=== PATIENT | female | born 1945 | race Caucasian/White ===

== ENCOUNTER → 2017-05-09 | Outpatient (CLI) | payer BC, OTHER ==
[~2017-05-09] MED LIST: ACET500; ALEN70 PO; ALEVE220 MG PO; ALPR.5 PO; AMOX500 PO; ASPI325 PO; CALCAVITD PO; CHLO4 PO; CODGUAEL PO; ERGO400 PO; SUDAFED 12-HOU120 MG PO
== END ==
LOC: PLD 13:54 → LAB SHORT 13:54
DX: L30.8 Other specified dermatitis (principal)
CPT/HCPCS: 88305; 88312

== ENCOUNTER 2018-02-27 09:05 | Inpatient (IN) | payer MEDICARE, BC, OTHER ==
[~2018-02-27] VITALS: Ht 160 cm; Wt 71.4 kg
[~2018-02-27 09:05] MED LIST changes: -ACET500; +ACET500 PO
[2018-02-27 09:56] LABS: BASOPHILS ABSOLUTE AUTO 0.06 K/mm3 (0.00-0.23); BASOPHILS PERCENT AUTO 0 % (0-2); EOSINOPHILS PERCENT AUTO 0 % (0-6); Hematocrit 41.6 % (33.0-51.0); Hemoglobin 13.7 g/dL (11.5-16.0); IMMATURE GRAN PERCENT AUTO 1 % (0-1); LYMPHOCYTES ABSOLUTE AUTO 0.92 K/mm3 (0.84-5.20); LYMPHOCYTES PERCENT AUTO 5 % (21-46); MONOCYTES PERCENT AUTO 8 % (4-13); Mean Corpuscular HGB 30.7 pg (26.0-34.0); Mean Corpuscular HGB Conc 32.9 g/dL (31.5-36.5); Mean Corpuscular Volume 93 fL (80-100); NEUTROPHILS ABSOLUTE AUTO 16.16 K/mm3 (1.96-9.15); NEUTROPHILS PERCENT AUTO 87 % (41-73); Platelet Count 289 K/mm3 (150-400); RDW Coefficient Variation 13.2 % (11.7-14.2); RDW Standard Deviation 45.1 fL (35.1-46.3); Red Blood Cell Count 4.46 M/mm3 (3.80-5.20); White Blood Cell Count 18.64 K/mm3 (4.00-11.30)
[2018-02-27 10:09] LABS: International Normalized Ratio 1.01; Prothrombin Time Results 10.4 Sec (9.7-11.5)
[2018-02-27 10:17] LABS: Alanine Aminotransfer (ALT/SGP 27 U/L (12-78); Albumin, Blood 4.1 g/dL (3.4-5.0); Albumin/Globulin Ratio 1.3 (0.8-1.8); Alk Phos 66 U/L (50-136); Anion Gap 10 mmol/L (6-16); Aspartate Aminotrans (AST/SGOT 28 U/L (12-37); Bilirubin, Total 0.7 mg/dL (0.1-1.0); Blood Urea Nitrogen 11 mg/dL (8-24); Bun/Creatinine Ratio 19.3 (12.0-20.0); CO2, Blood 24 mmol/L (21-32); Calcium, Blood 8.5 mg/dL (8.5-10.1); Chloride, Blood 103 mmol/L (98-108); Creatinine, Blood 0.57 mg/dL (0.40-1.00); Globulin, Blood 3.2 g/dL (2.2-4.0); Glomerular Filtration Rate >60 (60-); Glucose, Blood 101 mg/dL (70-99); Potassium, Blood 3.8 mmol/L (3.5-5.5); Sodium, Blood 137 mmol/L (136-145); Total Protein, Blood 7.3 g/dL (6.4-8.2)
[2018-02-27] MEDS ORDERED: CELE100 PO (11:45)
[2018-02-27 11:46] LABS: Appearance, Urine Clear (Clear); Bilirubin, Urine Neg (Neg); Blood, Urine 1+ (Neg); Color, Urine Yellow (P-Yellow); Glucose Qualitative, Urine Neg (Neg); Ketones, Urine 3+ (Neg); Leukocyte Esterase, Urine 1+ (Neg); Nitrite, Urine Neg (Neg); Protein, Urine Neg (Neg); Specific Gravity, Urine 1.015 (1.003-1.022); Urobilinogen, Urine NORM (Normal)
[2018-02-27 11:57] LABS: White Blood Cells, Urine 0-2 /hpf (0-5)
[2018-02-27 11:58] LABS: Bacteria Not Seen /hpf; Red Blood Cells, Urine 0-2 /hpf (0-2); Squamous Epithelial Cells Rare /hpf (Few); Uric Acid Crystals Rare /hpf
[2018-02-27] MEDS ORDERED: ANAS1 PO (13:28)
[2018-02-28 04:20] LABS: BASOPHILS ABSOLUTE AUTO 0.03 K/mm3 (0.00-0.23); BASOPHILS PERCENT AUTO 0 % (0-2); EOSINOPHILS PERCENT AUTO 0 % (0-6); Hematocrit 31.4 % (33.0-51.0); Hemoglobin 10.1 g/dL (11.5-16.0); IMMATURE GRAN ABSOLUTE AUTO 0.07 K/mm3 (0.00-0.10); IMMATURE GRAN PERCENT AUTO 0 % (0-1); LYMPHOCYTES ABSOLUTE AUTO 0.78 K/mm3 (0.84-5.20); LYMPHOCYTES PERCENT AUTO 5 % (21-46); MONOCYTES ABSOLUTE AUTO 1.69 K/mm3 (0.16-1.47); MONOCYTES PERCENT AUTO 10 % (4-13); Mean Corpuscular HGB 30.3 pg (26.0-34.0); Mean Corpuscular HGB Conc 32.2 g/dL (31.5-36.5); Mean Corpuscular Volume 94 fL (80-100); Mean Platelet Volume 11.9 fL (9.1-12.4); NEUTROPHILS ABSOLUTE AUTO 13.61 K/mm3 (1.96-9.15); NEUTROPHILS PERCENT AUTO 84 % (41-73); Platelet Count 195 K/mm3 (150-400); RDW Coefficient Variation 13.2 % (11.7-14.2); RDW Standard Deviation 45.7 fL (35.1-46.3); Red Blood Cell Count 3.33 M/mm3 (3.80-5.20); White Blood Cell Count 16.18 K/mm3 (4.00-11.30)
[2018-02-28 04:35] LABS: Anion Gap 7 mmol/L (6-16); Blood Urea Nitrogen 11 mg/dL (8-24); Bun/Creatinine Ratio 19.7 (12.0-20.0); CO2, Blood 27 mmol/L (21-32); Calcium, Blood 7.3 mg/dL (8.5-10.1); Chloride, Blood 108 mmol/L (98-108); Creatinine, Blood 0.56 mg/dL (0.40-1.00); Glomerular Filtration Rate >60 (60-); Glucose, Blood 129 mg/dL (70-99); Potassium, Blood 4.2 mmol/L (3.5-5.5); Sodium, Blood 142 mmol/L (136-145)
[2018-03-01 04:14] LABS: BASOPHILS ABSOLUTE AUTO 0.07 K/mm3 (0.00-0.23); BASOPHILS PERCENT AUTO 1 % (0-2); EOSINOPHILS PERCENT AUTO 1 % (0-6); Hematocrit 31.5 % (33.0-51.0); IMMATURE GRAN ABSOLUTE AUTO 0.06 K/mm3 (0.00-0.10); IMMATURE GRAN PERCENT AUTO 1 % (0-1); LYMPHOCYTES ABSOLUTE AUTO 1.62 K/mm3 (0.84-5.20); LYMPHOCYTES PERCENT AUTO 13 % (21-46); MONOCYTES ABSOLUTE AUTO 1.62 K/mm3 (0.16-1.47); MONOCYTES PERCENT AUTO 13 % (4-13); Mean Corpuscular HGB 30.9 pg (26.0-34.0); Mean Corpuscular HGB Conc 31.7 g/dL (31.5-36.5); Mean Platelet Volume 12.2 fL (9.1-12.4); NEUTROPHILS ABSOLUTE AUTO 9.22 K/mm3 (1.96-9.15); NEUTROPHILS PERCENT AUTO 73 % (41-73); Platelet Count 176 K/mm3 (150-400); RDW Coefficient Variation 13.2 % (11.7-14.2); Red Blood Cell Count 3.24 M/mm3 (3.80-5.20); White Blood Cell Count 12.69 K/mm3 (4.00-11.30)
[2018-03-01 04:18] LABS: Mean Corpuscular Volume 97 fL (80-100)
[2018-03-01 04:31] LABS: Anion Gap 6 mmol/L (6-16); Blood Urea Nitrogen 17 mg/dL (8-24); Bun/Creatinine Ratio 21.9 (12.0-20.0); CO2, Blood 27 mmol/L (21-32); Calcium, Blood 7.9 mg/dL (8.5-10.1); Chloride, Blood 107 mmol/L (98-108); Creatinine, Blood 0.78 mg/dL (0.40-1.00); Glomerular Filtration Rate >60 (60-); Glucose, Blood 95 mg/dL (70-99); Potassium, Blood 4.2 mmol/L (3.5-5.5); Sodium, Blood 140 mmol/L (136-145)
[2018-03-01] MEDS ORDERED: ASPI325EC PO (15:01)
[2018-03-01] MEDS ORDERED: OXYC5 PO (15:02)
== END 2018-03-01 15:15 | disposition home or self-care (01) | DRG 470 ==
LOC: ER 09:05 → SURS 11:12
PROVIDERS: Emergency Medicine; Internal Medicine Endocrinology, Diabetes & Metabolism; Orthopaedic Surgery
PROC: 0SR904Z Replacement of Right Hip Joint with Ceramic on Polyethylene Synthetic Substitute, Open Approach (ICD-10-PCS; principal; 2018-02-27 14:00)
DX: S72.001A Fracture of unspecified part of neck of right femur, initial encounter for closed fracture (principal); M85.80 Other specified disorders of bone density and structure, unspecified site; K21.9 Gastro-esophageal reflux disease without esophagitis; Z85.3 Personal history of malignant neoplasm of breast; Z79.811 Long term (current) use of aromatase inhibitors; Z79.82 Long term (current) use of aspirin; Z87.891 Personal history of nicotine dependence; Z79.1 Long term (current) use of non-steroidal anti-inflammatories (NSAID); Z79.899 Other long term (current) drug therapy
CPT/HCPCS: 36415; 51702; 71045; 72170; 73502; 73560-RT; 80048; 80053; 81001; 83735; 85025; 85610; 86850; 86900; 86901; 87086; 93005; 93010; 96361; 96374; 96376; 97116; 97161; 97166; 97530; 97535; 99285-25; C1713; C1776; G8978; G8979; G8987; G8988; J0171; J0330; J0690; J0735; J1100; J1170; J1885; J2370; J2405; J2710; J2795; J3010; J7030; J7120

== ENCOUNTER → 2019-05-24 | Outpatient (CLI) | payer BC ==
[~2019-05-24] MED LIST changes: +ANAS1 PO; +ASPI325EC PO; +CELE100 PO; +OXYC5 PO
== END | disposition home or self-care (01) ==
LOC: LAB SHORT 15:40 → LAB EV 15:40
DX: J02.9 Acute pharyngitis, unspecified (principal)
CPT/HCPCS: 87081

== ENCOUNTER 2020-08-24 16:39 | Day surgery (SDC) | payer BC ==
[~2020-08-24] VITALS: Ht 170.2 cm; Wt 68.8 kg
[2020-08-24 18:42] LABS: BASOPHILS ABSOLUTE AUTO 0.07 K/mm3 (0.00-0.23); BASOPHILS PERCENT AUTO 0 % (0-2); EOSINOPHILS ABSOLUTE AUTO 0.01 K/mm3 (0.00-0.68); EOSINOPHILS PERCENT AUTO 0 % (0-6); Hematocrit 42.2 % (33.0-51.0); Hemoglobin 13.8 g/dL (11.5-16.0); IMMATURE GRAN ABSOLUTE AUTO 0.15 K/mm3 (0.00-0.10); IMMATURE GRAN PERCENT AUTO 1 % (0-1); LYMPHOCYTES ABSOLUTE AUTO 0.99 K/mm3 (0.84-5.20); LYMPHOCYTES PERCENT AUTO 6 % (21-46); MONOCYTES ABSOLUTE AUTO 1.17 K/mm3 (0.16-1.47); MONOCYTES PERCENT AUTO 7 % (4-13); Mean Corpuscular HGB 30.3 pg (26.0-34.0); Mean Corpuscular HGB Conc 32.7 g/dL (31.5-36.5); Mean Corpuscular Volume 93 fL (80-100); Mean Platelet Volume 11.9 fL (9.1-12.4); NEUTROPHILS ABSOLUTE AUTO 15.53 K/mm3 (1.96-9.15); NEUTROPHILS PERCENT AUTO 87 % (41-73); Platelet Count 253 K/mm3 (150-400); RDW Coefficient Variation 13.2 % (11.7-14.2); RDW Standard Deviation 44.7 fL (35.1-46.3); Red Blood Cell Count 4.55 M/mm3 (3.80-5.20); White Blood Cell Count 17.92 K/mm3 (4.00-11.30)
[2020-08-24 19:03] LABS: Alanine Aminotransfer (ALT/SGP 30 U/L (12-78); Albumin, Blood 3.9 g/dL (3.4-5.0); Albumin/Globulin Ratio 1.2 (0.8-1.8); Alk Phos 51 U/L (50-136); Anion Gap 10 mmol/L (6-16); Aspartate Aminotrans (AST/SGOT 24 U/L (12-37); Bilirubin, Total 0.3 mg/dL (0.1-1.0); Blood Urea Nitrogen 8 mg/dL (8-24); Bun/Creatinine Ratio 11.9 (12.0-20.0); CO2, Blood 22 mmol/L (21-32); Calcium, Blood 8.6 mg/dL (8.5-10.1); Chloride, Blood 105 mmol/L (98-108); Creatinine, Blood 0.68 mg/dL (0.40-1.00); Globulin, Blood 3.2 g/dL (2.2-4.0); Glomerular Filtration Rate >60 (60-); Glucose, Blood 109 mg/dL (70-99); Potassium, Blood 3.6 mmol/L (3.5-5.5); Sodium, Blood 137 mmol/L (136-145); Total Protein, Blood 7.1 g/dL (6.4-8.2)
[2020-08-24 20:19] LABS: Source, Urine Catheter
[2020-08-24 20:21] LABS: Bilirubin, Urine Neg (Neg); Blood, Urine Neg (Neg); Glucose Qualitative, Urine Neg (Neg); Ketones, Urine Neg (Neg); Leukocyte Esterase, Urine Neg (Neg); Nitrite, Urine Neg (Neg); Protein, Urine Neg (Neg); Specific Gravity, Urine 1.005 (1.003-1.022); Urobilinogen, Urine NORM (Normal)
[2020-08-24 20:30] LABS: Appearance, Urine Clear (Clear); Color, Urine Yellow (P-Yellow)
[2020-08-24] MEDS ORDERED: HYDROCODONE-AC1 EAC7 PO (20:36)
--- NOTE | 2020-08-24 22:36 | NUR ---
75 YR OLD FEMALE ADMITTED TO THE FLOOR FROM THE ED WITH FX OF LEFT FEMUR NECK AND LEFT EYE BRUISE POST FALL AT HOME. ORIENTED X 4. ORIENTED TO CALL LIGHT. BEDREST. NPO. IVF OF NE INFUSING AT 75 ML/HR. CALL LIGHT IN REACH
--- NOTE | 2020-08-25 00:34 | NUR ---
AWAKE, C/O SEVERE PAIN OF LEFT HIP AREA. CALL PLACED TO [employer] MECHANICAL ENGINEER MD FOR ANALGESIC. SEE MAR FOR DETAILS. CALL LIGHT IN REACH
[2020-08-25 05:24] LABS: BASOPHILS ABSOLUTE AUTO 0.06 K/mm3 (0.00-0.23); BASOPHILS PERCENT AUTO 1 % (0-2); EOSINOPHILS ABSOLUTE AUTO 0.04 K/mm3 (0.00-0.68); EOSINOPHILS PERCENT AUTO 0 % (0-6); Hematocrit 39.8 % (33.0-51.0); IMMATURE GRAN ABSOLUTE AUTO 0.05 K/mm3 (0.00-0.10); IMMATURE GRAN PERCENT AUTO 0 % (0-1); LYMPHOCYTES ABSOLUTE AUTO 1.13 K/mm3 (0.84-5.20); LYMPHOCYTES PERCENT AUTO 9 % (21-46); MONOCYTES ABSOLUTE AUTO 1.35 K/mm3 (0.16-1.47); MONOCYTES PERCENT AUTO 11 % (4-13); Mean Corpuscular HGB 30.2 pg (26.0-34.0); Mean Corpuscular HGB Conc 32.7 g/dL (31.5-36.5); Mean Corpuscular Volume 92 fL (80-100); NEUTROPHILS ABSOLUTE AUTO 10.13 K/mm3 (1.96-9.15); NEUTROPHILS PERCENT AUTO 79 % (41-73); Platelet Count 213 K/mm3 (150-400); RDW Coefficient Variation 13.1 % (11.7-14.2); RDW Standard Deviation 44.4 fL (35.1-46.3); Red Blood Cell Count 4.31 M/mm3 (3.80-5.20); White Blood Cell Count 12.76 K/mm3 (4.00-11.30)
--- NOTE | 2020-08-25 05:58 | NUR ---
PRESIDING STEWARD SUMMARY RESTED QUIETLY WITH INTERMITTENT WAKEFULNESS AND REQUETS FOR PAIN MEDS FOR LEFT HIP PAIN. SEE MAR FOR DETAILS. CURRENTLY IVF INFUSING. CALL LIGHT IN REACH. WILL CALL IN ORTHO CONSULT.
[2020-08-25 06:02] LABS: Alanine Aminotransfer (ALT/SGP 24 U/L (12-78); Albumin, Blood 3.6 g/dL (3.4-5.0); Albumin/Globulin Ratio 1.3 (0.8-1.8); Alk Phos 52 U/L (50-136); Anion Gap 6 mmol/L (6-16); Aspartate Aminotrans (AST/SGOT 15 U/L (12-37); Bilirubin, Total 0.6 mg/dL (0.1-1.0); Blood Urea Nitrogen 7 mg/dL (8-24); CO2, Blood 25 mmol/L (21-32); Calcium, Blood 8.2 mg/dL (8.5-10.1); Chloride, Blood 107 mmol/L (98-108); Creatinine, Blood 0.58 mg/dL (0.40-1.00); Globulin, Blood 2.7 g/dL (2.2-4.0); Glomerular Filtration Rate >60 (60-); Glucose, Blood 109 mg/dL (70-99); Sodium, Blood 138 mmol/L (136-145); Total Protein, Blood 6.3 g/dL (6.4-8.2)
[2020-08-25 08:46] LABS: SARS-Cov-2 (COVID-19) PCR, MMC NEGATIVE (NEGATIVE)
--- NOTE | 2020-08-25 11:38 | NUR ---
PT IS IN NOW HAVING SURGERY; MEDICATED FOR PAIN PRIOR SURGERY.
--- NOTE | 2020-08-25 11:38 | NUR ---
CARE COORDINATION REFERRAL - ADMIT: 08/24/20 DISCHARGE: DX: LEFT FEMUR FRACTURE CC: [facility] CALL: RESIDENCE: HOME CAREGIVER: YOUNG MCGARRY, CHILD, DX: HTN, CHRONIC LOW BACK PAIN, IBS, BREAST CANCER, SEE LIST DME: NONE CCM: NONE HOME HEALTH: NONE SUMMARY: 08/25/20- PT IS SCHEDULED FOR SURGERY TODAY AROUND NOON. -AMBER
--- NOTE | 2020-08-25 11:46 | NUR ---
History, Chart, Medications and Allergies reviewed before start of procedure.Lungs clear T/O to Auscultation. Patient confirms NPO status and agrees with scheduled surgery. Pre-Op teaching done. Pt verbalizes understanding. I ILL NOTIFY CULLED FRUIT PACKER THAT PT TO PAINFUL TO PREP LEFT HIP AND PLACE PAS ON.
--- NOTE | 2020-08-25 12:24 | NUR ---
CALLED SURGICAL FLOOR FOR REPORT AND WILL CALL BACK
--- NOTE | 2020-08-25 12:44 | NUR ---
CARE COORDINATION REFERRAL - ADMIT: 08/24/20 DISCHARGE: DX: LEFT FEMUR FRACTURE CC: [facility] CALL: RESIDENCE: HOME CAREGIVER: YOUNG MCGARRY, CHILD, DX: HTN, CHRONIC LOW BACK PAIN, IBS, BREAST CANCER, SEE LIST DME: NONE CCM: NONE HOME HEALTH: NONE SUMMARY: 08/25/20- PT IS SCHEDULED FOR SURGERY TODAY AROUND NOON. -AMBER
--- NOTE | 2020-08-25 13:47 | NUR ---
08/25/20 1347 [place] Mar PATIENT ARRIVED TO OR WITH COULTER CATH IN PLACE DRAINING [place] COLORED URINE. EMPTIED FOR 350 ML
--- NOTE | 2020-08-25 17:08 | NUR ---
approx 1530, pt transfered to room on own bed, a/o x 4, pleasant/cooperative. post op vs commenced and stable. pt rates pain at 5/10, medicated per mar; pt is pleasantly suprised that her hip is feeling so much better. pt tolerating PO intake, denies n/v. capillary refil <3 sec operative limb. l hip dressing with foam tape and gauze c/d/i
[2020-08-26 04:49] LABS: BASOPHILS ABSOLUTE AUTO 0.03 K/mm3 (0.00-0.23); BASOPHILS PERCENT AUTO 0 % (0-2); EOSINOPHILS PERCENT AUTO 0 % (0-6); Hematocrit 33.3 % (33.0-51.0); Hemoglobin 10.7 g/dL (11.5-16.0); IMMATURE GRAN ABSOLUTE AUTO 0.08 K/mm3 (0.00-0.10); IMMATURE GRAN PERCENT AUTO 0 % (0-1); LYMPHOCYTES ABSOLUTE AUTO 0.61 K/mm3 (0.84-5.20); LYMPHOCYTES PERCENT AUTO 3 % (21-46); MONOCYTES ABSOLUTE AUTO 1.46 K/mm3 (0.16-1.47); MONOCYTES PERCENT AUTO 8 % (4-13); Mean Corpuscular HGB Conc 32.1 g/dL (31.5-36.5); Mean Corpuscular Volume 93 fL (80-100); Mean Platelet Volume 12.3 fL (9.1-12.4); NEUTROPHILS ABSOLUTE AUTO 15.95 K/mm3 (1.96-9.15); NEUTROPHILS PERCENT AUTO 88 % (41-73); Platelet Count 197 K/mm3 (150-400); RDW Coefficient Variation 12.9 % (11.7-14.2); Red Blood Cell Count 3.57 M/mm3 (3.80-5.20); White Blood Cell Count 18.13 K/mm3 (4.00-11.30)
[2020-08-26 05:14] LABS: Anion Gap 7 mmol/L (6-16); Blood Urea Nitrogen 10 mg/dL (8-24); Bun/Creatinine Ratio 19.5 (12.0-20.0); CO2, Blood 25 mmol/L (21-32); Chloride, Blood 104 mmol/L (98-108); Creatinine, Blood 0.51 mg/dL (0.40-1.00); Glomerular Filtration Rate >60 (60-); Glucose, Blood 140 mg/dL (70-99); Potassium, Blood 4.1 mmol/L (3.5-5.5); Sodium, Blood 136 mmol/L (136-145)
--- NOTE | 2020-08-26 05:40 | NUR ---
PT ALERT AND ORIENTED. VSS ON RA. PRN PAIN MEDS MANAGING PAIN WELL. COULTER IN PLACE. RESTING B/W CARE. USING CALL LIGHT TO MAKE NEEDS KNOWN.
[2020-08-26] MEDS ORDERED: Percocet 5-3251 EACH PO (12:22)
[2020-08-26] MEDS ORDERED: ENOX40I SC (12:23)
[2020-08-26] MEDS ORDERED: SULTRIDS PO (12:24)
--- NOTE | 2020-08-26 17:12 | NUR ---
1710 DISCHARGED TO HOME WITH SON AND GRANDSON. PT REPORTS PAIN IS WELL CONTROLLED. AMBULATING WITH WALKER AND STANDBY ASSIST AND FOLLOWS HIP PRECAUTIONS. PT DENIES ANY DIZZINESS WITH ACTIVITY. LAN PO FOOD AND FLUIDS WITHOUT NAUSEA. PT VERBALIZES UNDERSTANDING OF DISCHARGE INSTRUCTIONS AND IS AGREEABLE TO PLAN FOR DISCHARGE. [facility] NOTIFIED OF HOME HEALTH ORDERS FOR THIS PATIENT
== END 2020-08-26 16:45 | disposition home or self-care (01) ==
LOC: ER 16:39 → ERHOLD 20:06 → MEDS 20:06 → SURS 20:06 → ER 20:06 → ERHOLD 21:32 → MEDS 21:32 → ORSCMMR 22:36 → MEDS 08-25 11:25 → SURS 08-25 11:25 → ORSCMMR 08-26 16:45 → SURS 08-26 16:45
PROVIDERS: Emergency Medicine; Internal Medicine; Orthopaedic Surgery
PROC: 8E0YXBZ Computer Assisted Procedure of Lower Extremity (ICD-10-PCS; principal; 2020-08-24)
PROC: 0SRB0JZ Replacement of Left Hip Joint with Synthetic Substitute, Open Approach (ICD-10-PCS; principal; 2020-08-24)
DX: S72.092A Other fracture of head and neck of left femur, initial encounter for closed fracture (principal); W18.30XA Fall on same level, unspecified, initial encounter; Z96.641 Presence of right artificial hip joint; K21.9 Gastro-esophageal reflux disease without esophagitis; M19.90 Unspecified osteoarthritis, unspecified site; Z87.891 Personal history of nicotine dependence; Z79.899 Other long term (current) drug therapy; Z79.82 Long term (current) use of aspirin; Z20.822 Contact with and (suspected) exposure to COVID-19
CPT/HCPCS: 36415; 51702; 70450; 71045; 72170; 73502; 80048; 80053; 81003; 83735; 85025; 93005; 93010; 94760; 96374-59; 96375-59; 96376-59; 97110; 97116; 97162; 97165; 97530; 97535; 99285-25; A9270; C1713; C1776; J0690; J1100; J1170; J1650; J1885; J2405; J2704; J3010; J3370; J7030; J7120; U0004

== ENCOUNTER 2021-06-02 09:33 | Day surgery (SDC) | payer BC ==
[~2021-06-02] VITALS: Ht 157.5 cm; Wt 62.7 kg
[~2021-06-02 09:33] MED LIST changes: +CELE200 PO; +ENOX40I SC; +HYDROCODONE-AC1 EAC7 PO; +OXYB5 PO; +Percocet 5-3251 EACH PO; +SULTRIDS PO
--- NOTE | 2021-06-02 10:08 | NUR ---
06/02/21 Jesus8 SANA SAVAGE TETRACAINE DROP INSTILLED AT 0958. PLEDGETT INSERTED AT 1001.
[2021-06-02] MEDS ORDERED: Aspirin325 MG PO (10:09)
[2021-06-02] MEDS ORDERED: ANAS1 PO (10:10)
--- NOTE | 2021-06-02 11:16 | NUR ---
06/02/21 1116 VAIBHAV SHEETS PT SON AT BEDSIDE AFTER PROCEDURE. PT DOING VERY WELL. INFORMED THAT SHE WAS ALREADY SEEING MUCH BETTER.
== END 2021-06-02 11:10 | disposition home or self-care (01) ==
LOC: ORSCSDS 09:33
PROVIDERS: Ophthalmology
PROC: 08RK3JZ Replacement of Left Lens with Synthetic Substitute, Percutaneous Approach (ICD-10-PCS; principal; 2021-06-02 10:30)
DX: H25.12 Age-related nuclear cataract, left eye (principal); H52.4 Presbyopia; Z79.82 Long term (current) use of aspirin; Z79.899 Other long term (current) drug therapy
CPT/HCPCS: J2001; J2250; J3010; J3301; J7040; V2632

== ENCOUNTER 2022-11-20 21:11 | Emergency (ER) | payer BC ==
[~2022-11-20] VITALS: Ht 157.5 cm; Wt 56.7 kg
[~2022-11-20 21:11] MED LIST changes: +Aspirin325 MG PO
[2022-11-20 21:22] VITALS: BP 122/59
== END 2022-11-21 01:05 | disposition left against medical advice (07) ==
LOC: ER 21:11
DX: S49.91XA Unspecified injury of right shoulder and upper arm, initial encounter (principal); S69.92XA Unspecified injury of left wrist, hand and finger(s), initial encounter; W18.30XA Fall on same level, unspecified, initial encounter; Z53.21 Procedure and treatment not carried out due to patient leaving prior to being seen by health care provider
CPT/HCPCS: 73000; 73060; 73110

== ENCOUNTER 2024-10-10 12:37 | Day surgery (SDC) | payer BC, MEDICARE ==
[~2024-10-10] VITALS: Ht 157.5 cm; Wt 56.6 kg
[2024-10-10] VITALS (8 sets, daily range): BP systolic 151–171; BP diastolic 83–105
[~2024-10-10 12:37] MED LIST changes: +NAPR220 PO; +Norco 5-325 Ta1 EACH PO
[2024-10-10] MEDS ORDERED: CeFAZolin Sodium 2,000 MG in NS 100 ML IV SCH (13:45)
[2024-10-10] MEDS ORDERED: FentaNYL Citrate 50 MCG/ML 2 ML Injection ONE (14:27)
[2024-10-10] MEDS ORDERED: Midazolam HCl 1MG / ML 2ML Vial ONE (14:27)
[2024-10-10] MEDS ORDERED: Bupivacaine 0.5% HCl 5 MG/ML 30MLVIAL ONE (14:46)
--- NOTE | 2024-10-10 15:23 | NUR ---
1323: TIME OUT COMPLETED FOR NERVE BLOCK. DR. NELSON AT BEDSIDE. 1330: SEDATION GIVEN PER ANES, PT PLACED ON 2LO2 VIA NC, CARDIAC/SPO2 MONITOR. PROCEDURE STARTED. 1335: PROCEDURE END, LAN WELL.
[2024-10-10] MEDS ORDERED: Ondansetron HCl 2 MG / ML 2ML Vial ONE (16:46)
[2024-10-10] MEDS ORDERED: Dexamethasone Sod Phos 10 MG/ML 1ML VIAL ONE (16:46)
[2024-10-10] MEDS ORDERED: Albuterol 2.5 MG/3 ML VIAL INH PRN (17:30)
[2024-10-10] MEDS ORDERED: FentaNYL Citrate 50 MCG/ML 2 ML Injection IV PRN (17:30)
[2024-10-10] MEDS ORDERED: HYDROmorphone HCl/Pf 1MG SYR IV PRN (17:30)
[2024-10-10] MEDS ORDERED: Ondansetron HCl 2 MG / ML 2ML Vial IV PRN (17:35)
[2024-10-10] MEDS ORDERED: Ketorolac Tromethamine 15mg Vial IV PRN (17:45)
--- NOTE | 2024-10-10 18:50 | NUR ---
PT NEEDING ASSIST TO GET DRESSED, ALERT AND ORIENTED X4 WITH STEADY GAIT TO GET INTO W/C WITHOUT DIFF. ALL BELONINGS RETURNED TO PATIENT. ICE/SLIN IN PLACE. CIRXULATION REMAINS INTACT WITH [facility] DRESSING. VS REMAINED STABLE WITHOUT C/O OF PAIN OR NAUSEA/ WAITING FOR FLATWORK FOLDER COLTON.
== END 2024-10-10 23:00 | disposition home or self-care (01) ==
LOC: ORD 12:37 → ORSCMMR 12:37 → ORD 12:38 → ORSCMMR 23:00
PROVIDERS: Orthopaedic Surgery
PROC: 0PSJ04Z Reposition Left Radius with Internal Fixation Device, Open Approach (ICD-10-PCS; principal; 2024-10-10 14:00)
DX: S52.552A Other extraarticular fracture of lower end of left radius, initial encounter for closed fracture (principal); W22.03XA Walked into furniture, initial encounter; Z96.643 Presence of artificial hip joint, bilateral; Z96.611 Presence of right artificial shoulder joint; Z79.899 Other long term (current) drug therapy
CPT/HCPCS: 73110; C1713; J0690; J1100; J2250; J2405; J2704; J3010; J7120

== ENCOUNTER → 2024-10-23 | Outpatient (CLI) | payer BC ==
[2024-10-23 11:41] LABS: BASOPHILS ABSOLUTE AUTO 0.13 K/mm3 (0.00-0.23); BASOPHILS PERCENT AUTO 1 % (0-2); EOSINOPHILS ABSOLUTE AUTO 0.29 K/mm3 (0.00-0.68); EOSINOPHILS PERCENT AUTO 2 % (0-6); Hematocrit 40.9 % (33.0-51.0); Hemoglobin 13.4 g/dL (11.5-16.0); IMMATURE GRAN ABSOLUTE AUTO 0.19 K/mm3 (0.00-0.10); IMMATURE GRAN PERCENT AUTO 1 % (0-1); LYMPHOCYTES ABSOLUTE AUTO 1.82 K/mm3 (0.84-5.20); LYMPHOCYTES PERCENT AUTO 13 % (21-46); MONOCYTES ABSOLUTE AUTO 1.09 K/mm3 (0.16-1.47); MONOCYTES PERCENT AUTO 8 % (4-13); Mean Corpuscular HGB Conc 32.8 g/dL (31.5-36.5); Mean Corpuscular Volume 95 fL (80-100); NEUTROPHILS ABSOLUTE AUTO 10.89 K/mm3 (1.96-9.15); NEUTROPHILS PERCENT AUTO 76 % (41-73); NRBC ABSOLUTE 0.00 K/mm3 (0.00-0.02); NRBC Auto 0.0 /100 WBC (0.0-0.2); Platelet Count 365 K/mm3 (150-400); RDW Coefficient Variation 13.6 % (11.7-14.2); RDW Standard Deviation 47.8 fL (35.1-46.3)
[2024-10-23 11:51] LABS: Alanine Aminotransfer (ALT/SGP 23.0 U/L (12-78); Albumin, Blood 3.5 g/dL (3.4-5.0); Albumin/Globulin Ratio 1.0 (0.8-1.8); Anion Gap 13.0 mmol/L (3-11); Aspartate Aminotrans (AST/SGOT 24.0 U/L (12-37); Bilirubin, Total 0.3 mg/dL (0.1-1.0); Blood Urea Nitrogen 11.0 mg/dL (8-24); CO2, Blood 26.0 mmol/L (21-32); Calcium, Blood 8.6 mg/dL (8.5-10.1); Chloride, Blood 103.0 mmol/L (98-108); Creatinine, Blood 0.56 mg/dL (0.40-1.00); Globulin, Blood 3.6 g/dL (2.2-4.0); Glucose, Blood 88.0 mg/dL (70-99); Potassium, Blood 4.4 mmol/L (3.5-5.5); Sodium, Blood 138.0 mmol/L (136-145); Total Protein, Blood 7.1 g/dL (6.4-8.2)
== END ==
LOC: LAB 11:22 → LAB SHORT 11:22
PROVIDERS: Emergency Medicine
DX: T14.8XXA Other injury of unspecified body region, initial encounter (principal); T81.40XA Infection following a procedure, unspecified, initial encounter
CPT/HCPCS: 80053; 85025; 87040; 87070; 87075; 87077; 87147; 87186; 87205